=== PATIENT | female | born 1985 | race African-American/Black ===

== ENCOUNTER → 2021-06-15 08:52 | Outpatient (CLI) | payer OTHER, SELFPAY ==
--- NOTE | ~2021-06-15 | MMUS_ITS ---
EXAMINATION: MM diagnostic avery BI w radha, US breast BI complete HISTORY: Right palpable breast mass, right lateral breast tenderness. TECHNIQUE: ML, MLO and CC 3-D tomosynthesis images of both breasts were performed and synthetic 2-D i mages were generated. Magnification ML, MLO and CC views of right breast. CAD analysis was submitted and interpreted. High resolution complete bilateral breast ultrasound was performed, including all 4 quadrants and subareolar areas. COMPARISON: None BREAST PARENCHYMAL COMPOSITION: The breasts are heterogeneously dense, which may obscure small masses . FINDINGS: MAMMOGRAPHIC FINDINGS: There is a posterior mid to upper outer right breast cluster of grouped microcalcifications with gran ular appearance, indeterminate. These is situated near the area of clinical complaint of right breast lump which was localized with a skin marker. Stereotactic biopsy is recommended. Otherwise no suspicious mass or architectural distortion, malignant calcification, skin thickening or retraction of either breast is evident. ULTRASOUND: No suspicious mass, shadowing or vascularity is noted in either breast. IMPRESSION: 1. Indeterminate posterior mid to upper outer right breast grouped microcalcifications 2. Stereotactic biopsy is recommended BI-RADS category 4, suspicious findings. Dr. Crabtree telephoned the report and stereotactic biopsy recommendation on June 15, 2021 at 1122 ho urs to You Martinez. Reviewed, dictated and finalized at location A. [facility] IMPRESSION: 1. Indeterminate posterior mid to upper outer right breast grouped microcalcifi cations 2. Stereotactic biopsy is recommended BI-RADS category 4, suspicious findings. Dr. Crabtree telephoned the report and stereotactic biopsy recommendation on 2021 at 1122 hours to You Martinez.
== END ==
PROVIDERS: Visit Provider Nurse Practitioner Obstetrics & Gynecology
DX: N63.10 Unspecified lump in the right breast, unspecified quadrant (principal); N64.4 Mastodynia; Z80.3 Family history of malignant neoplasm of breast; R92.8 Other abnormal and inconclusive findings on diagnostic imaging of breast
CPT/HCPCS: 76641; 77062; 77066; G0279